=== PATIENT | female | born 1970 | race Two or more races ===

== ENCOUNTER → 2019-04-08 | Outpatient (CLI) | payer OTHER ==
[~2019-04-08] MED LIST: KEFLEX500 MG ORAL; PHENAZOPYRIDIN200 MG ORAL
--- NOTE | 2019-04-08 12:22 | Diagnostic Imaging Report ---
Indication: Abnormal uterine bleeding, left flank and back pain Technique: Transabdominal and transvaginal images of the pelvis. Doppler interrogation of the ovaries Comparison: none Findings: Uterus measures 11.7 cm length by 5.6 cm AP. The endometrium demonstrates an unusually echogenic center stripe, measures 18 mm in thickness overall. The myometrium demonstrates overall heterogeneity as well as focal masses measuring up to 3.3 cm in diameter. A few small fluid collections are seen within the endometrium. There are cervical nabothian cysts. The right ovary measures 3.5 cm length. Left ovary measures 3.2 cm length. A dominant follicle is seen within the left ovary and 2 in the right. Both ovaries demonstrate normal blood flow. No free cul-de-sac fluid demonstrated. Impression: Thickened 18 mm thick endometrium with small fluid collections or cysts. Gynecological evaluation and possible tissue sampling should be considered. MRI may also be useful for better characterization if clinically indicated Probable uterine fibroids Normal ovaries
== END | disposition home or self-care (01) ==
LOC: ULS 09:05
DX: N93.9 Abnormal uterine and vaginal bleeding, unspecified (principal); M54.9 Dorsalgia, unspecified; R10.9 Unspecified abdominal pain
CPT/HCPCS: 76856